=== PATIENT | male | born 1975 | race Caucasian/White ===

== ENCOUNTER 2020-09-03 16:38 | Emergency (ER) | payer MEDICARE, MEDICAID ==
[~2020-09-03] VITALS: Ht 162.6 cm; Wt 88.0 kg
[~2020-09-03 16:38] MED LIST: GABA300C PO; IBUP-1984 PO; NORCO10T PO
[2020-09-03 17:17] VITALS: BP 137/100
[2020-09-03] MEDS ORDERED: CLIN300C70 PO (19:41)
== END 2020-09-03 20:01 | disposition home or self-care (01) ==
LOC: ER 16:39
DX: K08.89 Other specified disorders of teeth and supporting structures (principal); Z88.8 Allergy status to other drugs, medicaments and biological substances; Z79.899 Other long term (current) drug therapy
CPT/HCPCS: 99283